=== PATIENT | male | born 1960 | race Hispanic/Latino ===

== ENCOUNTER 2022-08-26 21:29 | Emergency (ER) | payer BC ==
[2022-08-26] MEDS ORDERED: Oxymetazoline HCl 0.05% ( 15 ML ) ONE (23:48)
[2022-08-26] MEDS ORDERED: Bacitracin 1 PK ONE (23:48)
[2022-08-27 00:18] LABS: #Eosinphils 0.1 10x3/uL (0.0-0.5); #Monocytes 0.7 10x3/uL (0.0-1.1); #Neutrophils 4.2 10x3/uL (1.5-8.4); %Basophils 0.5 % (0.0-2.0); %Eosinophils 0.9 % (0.0-6.0); %Lymphocytes 32.9 % (18.0-47.0); %Monocytes 9.2 % (0.0-10.0); %Neutrophils 56.2 % (40.0-75.0); Hemoglobin 14.4 g/dL (13.5-17.5); Mean Corpuscular HGB CONC 32.2 g/dL (32.0-36.0); Mean Corpuscular Hemoglobin 27.9 pg (27.0-33.0); Mean Corpuscular Volume 86.5 fl (81.2-95.1); Mean Platelet Volume 12.6 fl (7.4-10.4); Platelet Count 158 10x3/uL (150-450); RBC Distribution Width 13.7 % (11.5-14.5); Red Blood Cell (RBC) Count 5.17 10x6/uL (4.32-5.72); White Blood Cell (WBC) Count 7.4 10x3/uL (3.5-10.5)
[2022-08-27 00:35] LABS: INR-International Normal Ratio 1.1; PTT 25.9 sec (22.0-33.0); Prothrombin Time 11.4 sec (9.5-12.1)
== END 2022-08-27 01:16 | disposition home or self-care (01) ==
LOC: CSHERS 21:29
DX: R04.0 Epistaxis (principal); E11.9 Type 2 diabetes mellitus without complications; Z79.4 Long term (current) use of insulin
CPT/HCPCS: 30901; 36415; 85025; 85610; 85730